=== PATIENT | male | born 1960 | race Caucasian/White ===

== ENCOUNTER 2018-09-12 12:31 | Emergency (ER) | payer OTHER ==
[~2018-09-12] VITALS: Ht 175.3 cm; Wt 59.0 kg
[~2018-09-12 12:31] MED LIST: ALBU8HFA2 INH; ALBU90OI INH; ALBU90OI6 INH; AZIT250 PO; BENZ100A PO; CLIN300 PO; CODGUAEL PO; CYCL10 PO; HYDACE5 PO; IBUP800 PO; Lamisil250 MG PO; MELO7.5 PO; Norco 5-325 Ta1 EACH PO; ONDA4 PO; PENVK500 PO; PRED20 PO; Prednisone20 MG PO; TRAM50 PO; Ultram50 MG PO; Zithromax250 MG PO
[2018-09-12] MEDS ORDERED: Zithromax250 MG PO (13:45)
[2018-09-12] MEDS ORDERED: METPRE4DP PO (13:47)
== END 2018-09-12 14:00 | disposition home or self-care (01) ==
LOC: ER 12:31
DX: J44.1 Chronic obstructive pulmonary disease with (acute) exacerbation (principal); F17.200 Nicotine dependence, unspecified, uncomplicated
CPT/HCPCS: 71046; 99283-25

== ENCOUNTER 2019-03-30 13:05 | Emergency (ER) | payer OTHER ==
[~2019-03-30] VITALS: Ht 175.3 cm; Wt 54.0 kg
[~2019-03-30 13:05] MED LIST changes: +METPRE4DP PO
[2019-03-30] MEDS ORDERED: Norco 10-325 T1 EACH PO (13:56)
== END 2019-03-30 14:12 | disposition home or self-care (01) ==
LOC: ER 13:05
DX: L03.116 Cellulitis of left lower limb (principal); L03.115 Cellulitis of right lower limb; B35.3 Tinea pedis; R59.0 Localized enlarged lymph nodes; M54.9 Dorsalgia, unspecified; G89.29 Other chronic pain; F17.200 Nicotine dependence, unspecified, uncomplicated
CPT/HCPCS: 99282

== ENCOUNTER 2019-06-26 07:17 | Day surgery (SDC) | payer OTHER ==
[~2019-06-26] VITALS: Ht 175.3 cm; Wt 56.7 kg
[~2019-06-26 07:17] MED LIST changes: +Norco 10-325 T1 EACH PO
--- NOTE | 2019-06-26 07:38 | NUR ---
Ambulatory in Day SurgeryPatient states colon prep results clear. History, Chart, Medications and Allergies reviewed before start of procedure.Lungs clear T/O to Auscultation. Patient confirms NPO status and agrees with scheduled surgery. Patient States Post-Procedure ride home has been arranged.
--- NOTE | 2019-06-26 08:02 | NUR ---
06/26/19 0802 Deyanira Dangelo History, Chart, Medications and Allergies reviewed before start of procedure. PATIENT CONFIRMS NPO STATUS AND AGREES WITH SCHEDULED PROCEDURE. MONITOR INTACT WITH CONTINUOUS PULSE OXIMETRY AND INTERMITTENT BP. O2 VIA N/C INTACT THROUGHOUT SEDATION/PROCEDURE. 3-LEAD EKG REVIEWED WITH PHYSICIAN PRIOR TO START OF PROCEDURE. PATIENT DETERMINED TO BE ASA APPROPRIATE FOR PROPOFOL SEDATION PRIOR TO START OF PROCEDURE BY DR. REESE.
--- NOTE | 2019-06-26 09:30 | NUR ---
RECIEVED PATIENT AND REPORT FROM REAL PAULINO. VSS PATIENT WAKING
--- NOTE | 2019-06-26 09:53 | NUR ---
Discharge instructions reviewed with patient. Patient verbalizes understanding. Copy given to patient to take home. Patient States Post-Procedure ride home has been arranged. EXCORTED OUT WITH NURSING ASSISTANTS TEACHER
== END 2019-06-26 23:06 | disposition home or self-care (01) ==
LOC: ORSCMMR 07:17 → ORD 08:00 → ORSCMMR 23:06
PROVIDERS: Internal Medicine Gastroenterology
PROC: 0DBN8ZX Excision of Sigmoid Colon, Via Natural or Artificial Opening Endoscopic, Diagnostic (ICD-10-PCS; principal; 2019-06-26 08:00)
PROC: 0DBH8ZX Excision of Cecum, Via Natural or Artificial Opening Endoscopic, Diagnostic (ICD-10-PCS; principal; 2019-06-26 08:00)
PROC: 0DBL8ZX Excision of Transverse Colon, Via Natural or Artificial Opening Endoscopic, Diagnostic (ICD-10-PCS; principal; 2019-06-26 08:00)
PROC: 0DBK8ZX Excision of Ascending Colon, Via Natural or Artificial Opening Endoscopic, Diagnostic (ICD-10-PCS; principal; 2019-06-26 08:00)
PROC: 0DBM8ZX Excision of Descending Colon, Via Natural or Artificial Opening Endoscopic, Diagnostic (ICD-10-PCS; principal; 2019-06-26 08:00)
PROC: 0DBC8ZX Excision of Ileocecal Valve, Via Natural or Artificial Opening Endoscopic, Diagnostic (ICD-10-PCS; principal; 2019-06-26 08:00)
DX: K62.5 Hemorrhage of anus and rectum (principal); R19.7 Diarrhea, unspecified; D12.0 Benign neoplasm of cecum; D12.2 Benign neoplasm of ascending colon; D12.4 Benign neoplasm of descending colon; J44.9 Chronic obstructive pulmonary disease, unspecified; F17.210 Nicotine dependence, cigarettes, uncomplicated
CPT/HCPCS: 88305; J2704; J7120

== ENCOUNTER 2019-11-21 13:03 | Emergency (ER) | payer OTHER ==
[~2019-11-21] VITALS: Ht 175.3 cm; Wt 59.0 kg
[2019-11-21 14:04] LABS: BASOPHILS ABSOLUTE AUTO 0.04 K/mm3 (0.00-0.23); BASOPHILS PERCENT AUTO 0 % (0-2); EOSINOPHILS ABSOLUTE AUTO 0.04 K/mm3 (0.00-0.68); EOSINOPHILS PERCENT AUTO 0 % (0-6); Hemoglobin 14.8 g/dL (13.5-17.5); IMMATURE GRAN ABSOLUTE AUTO 0.02 K/mm3 (0.00-0.10); IMMATURE GRAN PERCENT AUTO 0 % (0-1); LYMPHOCYTES ABSOLUTE AUTO 1.67 K/mm3 (0.84-5.20); LYMPHOCYTES PERCENT AUTO 15 % (21-46); MONOCYTES ABSOLUTE AUTO 1.01 K/mm3 (0.16-1.47); MONOCYTES PERCENT AUTO 9 % (4-13); Mean Corpuscular HGB 30.7 pg (26.0-34.0); Mean Corpuscular HGB Conc 33.6 g/dL (31.5-36.5); Mean Corpuscular Volume 91 fL (80-100); Mean Platelet Volume 10.1 fL (9.1-12.4); NEUTROPHILS ABSOLUTE AUTO 8.09 K/mm3 (1.96-9.15); NEUTROPHILS PERCENT AUTO 74 % (41-73); Platelet Count 343 K/mm3 (150-400); RDW Coefficient Variation 14.3 % (11.7-14.2); RDW Standard Deviation 48.1 fL (35.1-46.3); Red Blood Cell Count 4.82 M/mm3 (4.30-5.90); White Blood Cell Count 10.87 K/mm3 (4.00-11.30)
[2019-11-21 14:44] LABS: Alanine Aminotransfer (ALT/SGP 21 U/L (12-78); Albumin, Blood 3.8 g/dL (3.4-5.0); Alk Phos 78 U/L (50-136); Anion Gap 5 mmol/L (6-16); Aspartate Aminotrans (AST/SGOT 22 U/L (12-37); Bilirubin, Total 0.4 mg/dL (0.1-1.0); Blood Urea Nitrogen 14 mg/dL (8-24); Bun/Creatinine Ratio 17.2 (12.0-20.0); CO2, Blood 28 mmol/L (21-32); Calcium, Blood 8.8 mg/dL (8.5-10.1); Chloride, Blood 108 mmol/L (98-108); Creatinine, Blood 0.81 mg/dL (0.60-1.20); Glomerular Filtration Rate >60 (60-); Glucose, Blood 88 mg/dL (70-99); Potassium, Blood 3.7 mmol/L (3.5-5.5); Sodium, Blood 141 mmol/L (136-145); Total Protein, Blood 7.8 g/dL (6.4-8.2)
[2019-11-21 15:15] LABS: Source, Urine Clean Catch
[2019-11-21 15:21] LABS: Bilirubin, Urine Neg (Neg); Blood, Urine 1+ (Neg); Glucose Qualitative, Urine Neg (Neg); Ketones, Urine 1+ (Neg); Leukocyte Esterase, Urine 1+ (Neg); Nitrite, Urine Neg (Neg); Protein, Urine Neg (Neg); Urobilinogen, Urine 1+ (Normal)
[2019-11-21 15:31] LABS: Appearance, Urine Clear (Clear); Color, Urine Yellow (P-Yellow)
[2019-11-21 15:33] LABS: Bacteria Rare /hpf; Squamous Epithelial Cells Rare /hpf (Few)
[2019-11-21] MEDS ORDERED: Percocet 7.5-31 EACH PO (17:51)
== END 2019-11-21 18:34 | disposition home or self-care (01) ==
LOC: ER 13:03
PROVIDERS: Nurse Practitioner
DX: R10.32 Left lower quadrant pain (principal); R10.13 Epigastric pain; R10.12 Left upper quadrant pain; F17.200 Nicotine dependence, unspecified, uncomplicated
CPT/HCPCS: 36415; 74177; 80053; 81001; 83690; 85025; 87086; 87147; 93005; 93010; 96374-59; 99284-25; J1885; Q9967

== ENCOUNTER 2019-12-09 09:53 | Day surgery (SDC) | payer OTHER ==
[~2019-12-09 09:53] MED LIST changes: +Percocet 7.5-31 EACH PO
[2019-12-10 15:08] LABS: Performing Lab SYMBIODX; Test Name TISSUE BIOPSY
== END 2019-12-09 23:11 | disposition home or self-care (01) ==
LOC: US 09:53
PROVIDERS: Internal Medicine Hematology & Oncology
DX: R19.04 Left lower quadrant abdominal swelling, mass and lump (principal); M54.9 Dorsalgia, unspecified; G89.29 Other chronic pain; F17.200 Nicotine dependence, unspecified, uncomplicated
CPT/HCPCS: 38505; 76942

== ENCOUNTER 2019-12-23 05:50 | Day surgery (SDC) | payer OTHER ==
[~2019-12-23] VITALS: Ht 177.8 cm; Wt 57.0 kg
--- NOTE | 2019-12-23 06:46 | NUR ---
Ambulatory in Day Surgery. Surgical site prepped with 2% Chlorhexidine cloth wipe. Pre-Op teaching done. Pt verbalizes understanding. Patient States Post-Procedure ride home has been arranged. History, Chart, Medications and Allergies reviewed before start of procedure. Lungs clear T/O to Auscultation. Patient confirms NPO status and agrees with scheduled surgery.
--- NOTE | 2019-12-23 10:08 | NUR ---
LE 0915 Patient up to Ambulate independently. Gait steady. Discharge instructions reviewed with patient. Patient verbalizes understanding. Copy given to patient to take home. Patient States Post-Procedure ride home has been arranged. Discharged via wheelchair to private car for ride home. PT TOLERATED FOOD AND FLUID AND RECEIVED ONE PAIN PILL. Dressing to procedure site clean, dry, intact with no visible drainage, swelling, erythema or bruising noted.ALL BELONINGS SENT HOME WITH PT.
[2019-12-23 11:44] LABS: Performing Lab SYMBIODX; Test Name FLOW CYTOMETRY
== END 2019-12-23 22:51 | disposition home or self-care (01) ==
LOC: ORSCMMR 05:50 → ORD 07:30 → ORSCMMR 22:51
PROVIDERS: Surgery
PROC: 07BJ0ZX Excision of Left Inguinal Lymphatic, Open Approach, Diagnostic (ICD-10-PCS; principal; 2019-12-23 07:30)
DX: R59.0 Localized enlarged lymph nodes (principal); J44.9 Chronic obstructive pulmonary disease, unspecified; F17.210 Nicotine dependence, cigarettes, uncomplicated; Z79.899 Other long term (current) drug therapy
CPT/HCPCS: 88184; 88185; 88305; 88342; A9270-GY; J0690; J1100; J1885; J2250; J2405; J2704; J3010; J7120

== ENCOUNTER 2019-12-29 08:28 | Inpatient (IN) | payer OTHER ==
[~2019-12-29] VITALS: Ht 175.3 cm; Wt 55.2 kg
[2019-12-29 09:22] LABS: BASOPHILS ABSOLUTE AUTO 0.05 K/mm3 (0.00-0.23); BASOPHILS PERCENT AUTO 0 % (0-2); EOSINOPHILS PERCENT AUTO 0 % (0-6); Hematocrit 38.1 % (37.0-53.0); Hemoglobin 13.1 g/dL (13.5-17.5); IMMATURE GRAN ABSOLUTE AUTO 0.37 K/mm3 (0.00-0.10); IMMATURE GRAN PERCENT AUTO 2 % (0-1); LYMPHOCYTES ABSOLUTE AUTO 0.67 K/mm3 (0.84-5.20); LYMPHOCYTES PERCENT AUTO 3 % (21-46); MONOCYTES ABSOLUTE AUTO 2.06 K/mm3 (0.16-1.47); MONOCYTES PERCENT AUTO 8 % (4-13); Mean Corpuscular HGB 30.5 pg (26.0-34.0); Mean Corpuscular HGB Conc 34.4 g/dL (31.5-36.5); Mean Corpuscular Volume 89 fL (80-100); Mean Platelet Volume 10.2 fL (9.1-12.4); NEUTROPHILS ABSOLUTE AUTO 21.79 K/mm3 (1.96-9.15); NEUTROPHILS PERCENT AUTO 87 % (41-73); Platelet Count 297 K/mm3 (150-400); RDW Coefficient Variation 14.4 % (11.7-14.2); RDW Standard Deviation 46.1 fL (35.1-46.3); White Blood Cell Count 24.94 K/mm3 (4.00-11.30)
[2019-12-29 09:44] LABS: Alanine Aminotransfer (ALT/SGP 20 U/L (12-78); Albumin/Globulin Ratio 0.7 (0.8-1.8); Alk Phos 74 U/L (50-136); Anion Gap 8 mmol/L (6-16); Aspartate Aminotrans (AST/SGOT 17 U/L (12-37); Bilirubin, Total 0.5 mg/dL (0.1-1.0); Blood Urea Nitrogen 20 mg/dL (8-24); Bun/Creatinine Ratio 25.1 (12.0-20.0); CO2, Blood 23 mmol/L (21-32); Calcium, Blood 8.9 mg/dL (8.5-10.1); Chloride, Blood 105 mmol/L (98-108); Globulin, Blood 4.4 g/dL (2.2-4.0); Glomerular Filtration Rate >60 (60-); Glucose, Blood 123 mg/dL (70-99); Potassium, Blood 3.6 mmol/L (3.5-5.5); Sodium, Blood 136 mmol/L (136-145); Total Protein, Blood 7.4 g/dL (6.4-8.2)
--- NOTE | 2019-12-29 15:38 | NUR ---
12/29/19 1538 Afua Grey ALL COUNTS CORRECT. 1% LIDOCAINE WITH EPI 1:100,000 AND 0.5% BUPIVICAINE 11CC'S TOTAL USED THROUGHOUT THE CASE. JEFFERSON BARTHOLOMEW ADMINISTERD CONSCIOUS SEDATION AND MONITORED PATIENT THROUGHTOUT THE PROCEDURE. PAITIENT TOLERATED PROCEDURE WELL.
--- NOTE | 2019-12-29 15:44 | NUR ---
Dressing to procedure site clean, dry, intact with no visible drainage, swelling, erythema or bruising noted.
--- NOTE | 2019-12-29 15:45 | NUR ---
REPORT TO JUNIE GAYLE RN. NO CHANGES.
--- NOTE | 2019-12-29 16:23 | NUR ---
SHIFT SUMMARY PT AXO, PLEASANT AND COOPERATIVE WITH CARE. NEW ADMIT THIS SHIFT. PT ARRIVED TO ROOM AT 1210. ADMISSION PROCESS COMPLETED INCLUDING PHOTOS OF LEFT UPPER THIGH TAKEN AND IN CHART. DR MORE IN ROOM AT 1220, SEE NOTE. PATIENT BACK TO ROOM FROM PROCEDURE WITH DR MORE AT 1555. PT VSS. IV PATENT AND INFUSING PER EMAR. BED IN LOW POSITION, CALL LIGHT WITHIN REACH. NO COMPLAINTS OF PAIN, SOB OR NV SINCE ARRIVAL TO ROOM.
[2019-12-30 04:57] LABS: BASOPHILS ABSOLUTE AUTO 0.03 K/mm3 (0.00-0.23); BASOPHILS PERCENT AUTO 0 % (0-2); EOSINOPHILS ABSOLUTE AUTO 0.16 K/mm3 (0.00-0.68); EOSINOPHILS PERCENT AUTO 1 % (0-6); Hematocrit 32.4 % (37.0-53.0); Hemoglobin 10.9 g/dL (13.5-17.5); IMMATURE GRAN ABSOLUTE AUTO 0.07 K/mm3 (0.00-0.10); IMMATURE GRAN PERCENT AUTO 1 % (0-1); LYMPHOCYTES PERCENT AUTO 10 % (21-46); MONOCYTES ABSOLUTE AUTO 1.49 K/mm3 (0.16-1.47); MONOCYTES PERCENT AUTO 13 % (4-13); Mean Corpuscular HGB 30.2 pg (26.0-34.0); Mean Corpuscular HGB Conc 33.6 g/dL (31.5-36.5); Mean Corpuscular Volume 90 fL (80-100); Mean Platelet Volume 10.8 fL (9.1-12.4); NEUTROPHILS PERCENT AUTO 75 % (41-73); Platelet Count 243 K/mm3 (150-400); RDW Coefficient Variation 14.6 % (11.7-14.2); RDW Standard Deviation 47.8 fL (35.1-46.3); Red Blood Cell Count 3.61 M/mm3 (4.30-5.90); White Blood Cell Count 11.65 K/mm3 (4.00-11.30)
[2019-12-30 05:13] LABS: Anion Gap 5 mmol/L (6-16); Blood Urea Nitrogen 14 mg/dL (8-24); CO2, Blood 26 mmol/L (21-32); Chloride, Blood 108 mmol/L (98-108); Creatinine, Blood 0.74 mg/dL (0.60-1.20); Glomerular Filtration Rate >60 (60-); Glucose, Blood 89 mg/dL (70-99); Potassium, Blood 3.8 mmol/L (3.5-5.5); Sodium, Blood 139 mmol/L (136-145)
--- NOTE | 2019-12-30 18:32 | NUR ---
PT HAS BEEN PLEASANT AND COOPERATIVE THIS SHIFT, DRESSING TO LEFT GROIN SURG INCISION CHANGED, JENNIFER DRAIN REMAINS IN PLACE AND REDNESS ON LEFT INNER THIGH HAS GREATLY DECREASED. PT HAS BEEN COMFORTABLE MOST OF THE DAY, NO PAIN REPORTED UNTIL SHORTLY BEFOE 6 PM AND HE WAS MEDICATED PER EMAR. HE IS HOPING TO GO HOME TOMORROW. NO ACUTE CHANGES NOTED THIS SHIFT, WILL CONTINUE TO MONITOR AN REPORT TO ONCOMING RN.
[2019-12-30 23:46] LABS: Vancomycin, Trough 5.9 ug/mL (5.0-10.0)
--- NOTE | 2019-12-31 05:04 | NUR ---
SUMMARY PT HAD NO NEW ISSUES. DRESSING CHANGED, DRAIN IS OPERATING WELL. PT DISCOMFORT TX PER MAR W/ RELIEF. PT HAD SOME TROUBLE SLEEPING AND BENEDRYL WAS ORDERED. PT CURRENTLY SLEEPING IN NO DISTRESS. CALL LIGHT IN REACH.
--- NOTE | 2019-12-31 13:05 | NUR ---
Advance Directive education attempted. Upon receiving an admit referral for advance directive education, I visit patient. After explaining about what an advance directive is and it's importance, patient makes it very clear that he has no interest in the advance directive. Patient then explains about his medical issues, his career at [employer] and his family. I will continue to remain available to patient and family.
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
[2019-12-31] MEDS ORDERED: CEPH500 PO (13:54)
--- NOTE | 2019-12-31 14:13 | NUR ---
DISCHARGED CALLLED PRESCRIPTION INTO [facility] PER PT REQUEST. DC'D IV, CATHETER INTACT. REVIEWED DC PAPERWORK W/PT; VERBALIZED UNDERSTANDING. PT LEFT UNIT BY AMBULATION W/POSSESSIONS AND DC PAPERWORK IN HAND TO RIDE AWAITING OUTSIDE. ACCOMPANIED BY [facility].
== END 2019-12-31 14:17 | disposition home or self-care (01) | DRG 857 ==
LOC: ER 08:28 → MEDS 11:29
PROVIDERS: Emergency Medicine; Surgery; ADMIT Internal Medicine
PROC: 0Y9600Z Drainage of Left Inguinal Region with Drainage Device, Open Approach (ICD-10-PCS; principal; 2019-12-29 13:00)
DX: T81.49XA Infection following a procedure, other surgical site, initial encounter (principal); L02.214 Cutaneous abscess of groin; L76.32 Postprocedural hematoma of skin and subcutaneous tissue following other procedure; F17.210 Nicotine dependence, cigarettes, uncomplicated; J44.9 Chronic obstructive pulmonary disease, unspecified; B95.4 Other streptococcus as the cause of diseases classified elsewhere
CPT/HCPCS: 36415; 73701; 80048; 80053; 80202; 85025; 87070; 87075; 87077; 87147; 87186; 87205; 94760; 96365-59; 96375; 99284-25; A9270; J2250; J2270; J2405; J3010; J3370; J7030; J7120; Q0163; Q9967

== ENCOUNTER 2024-11-05 14:22 | Emergency (ER) | payer MEDICARE, OTHER ==
[~2024-11-05] VITALS: Ht 175.3 cm; Wt 74.8 kg
[~2024-11-05 14:22] MED LIST changes: +CEPH500 PO
[2024-11-05 14:36] VITALS: BP 148/99
[2024-11-05] MEDS ORDERED: Ketorolac Tromethamine 30mg Vial IM ONE (15:05)
== END 2024-11-05 15:23 | disposition home or self-care (01) ==
LOC: ER 14:22
DX: M75.32 Calcific tendinitis of left shoulder (principal); F17.210 Nicotine dependence, cigarettes, uncomplicated; Z79.899 Other long term (current) drug therapy
CPT/HCPCS: 73030; 96372; 99283-25; J1885